=== PATIENT | male | born 1980 | race Two or more races ===

== ENCOUNTER 2017-11-03 15:57 | Emergency (ER) | payer OTHER ==
[2017-11-03 15:58] VITALS: BMI 25.9
--- NOTE | 2017-11-03 18:22 | ED PDOC ---
HPI: Psych/Substance Abuse Time Seen by Provider: 11/03/17 16:14 Chief Complaint (Nursing): Substance Abuse Chief Complaint (Provider): Substance abuse Additional Complaint(s): Pt BIBA for substance abuse, admits to taking Percocet today. Past Medical History Reviewed: Nursing Documentation, Vital Signs Vital Signs: Last Vital Signs Temp 98.3 F 11/03/17 16:02 Pulse 88 11/03/17 16:02 Resp 20 11/03/17 16:02 BP Pulse Ox 98 11/03/17 16:02 - Family History Family History: States: Unknown Family Hx - Allergies Allergies/Adverse Reactions: Allergies Allergy/AdvReac Type Severity Reaction Status Date / Time No Known Allergies Allergy Verified 10/20/17 08:58 Review of Systems Review Of Systems: ROS cannot be obtained secondary to pt's inabilty to answer questions. Physical Exam - Reviewed Nursing Documentation Reviewed: Yes Vital Signs Reviewed: Yes - Physical Exam Appears: Positive for: Well, No Acute Distress (Responsive to verbal stimuli) Skin: Positive for: Normal Color, Warm, Dry Cardiovascular/Chest: Positive for: Regular Rate, Rhythm Respiratory: Positive for: Normal Breath Sounds. 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 - accuchecl - EtoH level - UDS Disposition - Clinical Impression Clinical Impression: Substance abuse - Disposition Referrals: [facility] [place] [Outside] Disposition: Transfer of Care Disposition Time: 19:00 Condition: STABLE Instructions: Drug Abuse and Drug Addiction (DC) Patient Signed Over To: Josy Campbell
--- NOTE | 2017-11-03 19:31 | ED PDOC ---
- Laboratory Results Result Diagrams: 11/03/17 21:10 11/03/17 21:10 - ECG O2 Sat by Pulse Oximetry: 98 - Progress Re-evaluation Time: 00:16 Condition: Re-examined, Improved Medical Decision Making Medical Decision Making: Time: 1899 --Patient is endorsed to provider by Dr. Devi, pending lab results and clinical sobriety. Scribe Attestation: Documented by Wendy Mccollum, acting as a scribe for Josy Campbell MD. Provider Scribe Attestation: All medical record entries made by the Scribe were at my direction and personally dictated by me. I have reviewed the chart and agree that the record accurately reflects my personal performance of the history, physical exam, medical decision making, and the department course for this patient. I have also personally directed, reviewed, and agree with the discharge instructions and disposition. Disposition Doctor Will See Patient In The: Office Counseled Patient/Family Regarding: Studies Performed, Diagnosis, Need For Followup - Clinical Impression Clinical Impression: Substance abuse - POA Present On Arrival: None - Disposition Referrals: [facility] [Outside] Disposition: Routine/Home Disposition Time: 00:17 Condition: GOOD Instructions: Drug Abuse and Drug Addiction (DC)
[2017-11-03 21:19] LABS: BASO # 0.1 K/uL (0.0-0.2); BASO % 1.1 % (0.0-2.0); EOS # 0.3 K/uL (0.0-0.7); EOS % 4.3 % (0.0-4.0); HEMOGLOBIN 13.7 g/dL (12.0-18.0); LYMPH # 1.9 K/uL (1.0-4.3); LYMPH % 26.1 % (20.0-40.0); MEAN CELL VOLUME 91.6 fl (80.0-94.0); MEAN CORPUSCULAR HEMOGLOBIN 29.8 pg (27.0-31.0); MEAN CORPUSCULAR HGB CONC 32.6 g/dL (33.0-37.0); MONO # 0.8 K/uL (0.0-0.8); MONO % 10.8 % (0.0-10.0); NEUT # 4.3 K/uL (1.8-7.0); NEUT % 57.7 % (50.0-75.0); NRBC % 0.1 % (0.0-0.0); RBC 4.58 Mil/uL (4.40-5.90); RED CELL DISTRIBUTION WIDTH 14.7 % (11.5-14.5); WHITE BLOOD COUNT 7.4 K/uL (4.8-10.8)
[2017-11-03 21:28] LABS: PROTHROMBIN TIME 11.1 Seconds (9.8-13.1)
[2017-11-03 21:38] LABS: BLOOD UREA NITROGEN 23 mg/dl (9-20); CALCIUM 8.6 mg/dL (8.4-10.2); GFR AFRICAN-AMERICAN > 60; GFR NON-AFRICAN AMERICAN > 60
[2017-11-04 01:52] VITALS: BP 115/69; PULSE 86; RESP 19; TEMP 98.6; O2SAT 98
--- NOTE | 2017-11-04 08:24 | RAD ---
HISTORY: chest pain COMPARISON: No prior. FINDINGS: LUNGS: No active pulmonary disease. PLEURA: No significant pleural effusion identified, no pneumothorax apparent. CARDIOVASCULAR: Normal. OSSEOUS STRUCTURES: No significant abnormalities. VISUALIZED UPPER ABDOMEN: Normal. OTHER FINDINGS: None. IMPRESSION: No acute cardiopulmonary disease appreciated.
--- NOTE | 2017-11-07 21:24 | CARD ---
APPROVED REPORT EKG Measurement Heart [id number] <Conclusion> Sinus bradycardia Voltage criteria for left ventricular hypertrophy Early repolarization Abnormal ECG
== END 2017-11-04 02:00 | disposition home or self-care (01) ==
LOC: H.ER 15:57
DX: F19.10 Other psychoactive substance abuse, uncomplicated (principal)